=== PATIENT | male | born 1975 | race Hispanic/Latino ===

== ENCOUNTER 2019-06-08 08:09 | Outpatient (CLI) | payer BC ==
--- NOTE | 2019-06-08 08:44 | ULT ---
Sonogram abdomen complete HISTORY: Upper abdomen pain. FINDINGS: Gallbladder has a normal appearance. No stones visible. Common duct is 0.3 cm. Liver is dif fusely echogenic without focal mass or intrahepatic biliary dilatation. No free fluid. Exophytic cortical cyst of the superior pole of the right kidney 2.5 cm. No hydronephrosis. The splee n, left kidney, and visualized portions of the abdominal aorta, IVC, and pancreas are unremarkable. IMPRESSION: No acute abnormalities are demonstrated. Hepatosteatosis.
== END 2019-06-08 08:10 | disposition home or self-care (01) ==
LOC: SCSULT 08:09
PROVIDERS: ATTEND Family Medicine
DX: R10.84 Generalized abdominal pain (principal); K76.0 Fatty (change of) liver, not elsewhere classified
CPT/HCPCS: 93975

== ENCOUNTER 2020-09-05 08:37 | Outpatient (CLI) | payer BC | END 2020-09-05 08:38 | disposition home or self-care (01) | LOC: BICULT 08:37 | PROVIDERS: ATTEND Family Medicine | DX: R10.84 Generalized abdominal pain (principal) | CPT/HCPCS: 93975 ==